=== PATIENT | male | born 1985 | race Caucasian/White ===

== ENCOUNTER 2017-07-28 10:05 | Emergency (ER) | payer SELFPAY ==
[2017-07-28] MEDS ORDERED: DUONEB 0.5 MG/3 MG ONE (10:12)
[2017-07-28] MEDS ORDERED: SOLU-Medrol 125 MG VIAL ONE (10:12)
[2017-07-28 10:27] VITALS: BP 187/93; BMI 18.4
[2017-07-28] MEDS ORDERED: SOLU-Medrol 125 MG VIAL IVP ONE (10:27)
[2017-07-28] MEDS ORDERED: DUONEB 0.5 MG/3 MG NEB ONE (10:27)
--- NOTE | 2017-07-28 10:36 | DR.URIAD ---
HPI - Time Seen Time seen: 10:30 - PCP Primary Care Physician: NATIVIDAD - HPI Comment HPI Comment: HISTORY COPD AND OUT OF INHALER. LOW GRADE FEVER. - Complaint Chief Complaint Doctors Comments: INCREASING SOB, COUGH, CONGESTION TIMES ONE DAY. Chief Complaint:: PT C/O BEING UP SINCE 0100. WITH C/O SOB, PT HAS HX OF COPD, INPIR WHEEZING NOTED .. - Reviewed Nurses Notes Reviewed: Yes - Source History Provided: Patient - Mode of Arrival Mode of Arrival: Ambulatory - Timing Onset of Chief Complaint: 07/27/17 - Context Recent Treated Infections: None History of Respiratory: Steroid Use (HISTORY COPD) - Quality Quality of Cough: Productive, Yellow Rhinorrhea: Green Shortness of Breath: Moderate - Associated Signs and Symptoms Other Signs and Symptoms: Cough, Shortness of Breath, Wheeze PMH - PMH Past Medical History: Yes Past Medical History: COPD Past Surgical History: No - Family History History of Family Medical Conditions: No - Social History Does patient currently use any type of tobacco product: No Have you used tobacco products in the last 12 months: No Type of Tobacco Use: None Does any household member use tobacco: No Alcohol Use: None Do you use any recreational Drugs:: No Lives With: Family Lives Where: Home - infectious screening In the last 2 months have you had wt loss of >10#?: NO Have you had fever, night sweats or hemotysis?: No Have you traveled outside the country in the last 6 months?: No Isolation: Standard ROS - Review of Systems Constitutional: Weakness, Fatigue. negative: Chills, Fever Eyes: negative: Eye Pain, Discharge ENTM: Nose Discharge, Nose Congestion. negative: Ear Pain, Throat Pain Respiratoy: Productive Cough, Short of Breath, Wheezing. negative: Hemoptysis Cardiovascular: No Symptoms Reported Gastrointestinal/Abdominal: No Symptoms Reported Genitourinary: No Symptoms Reported Neurological: No Symptoms Reported Musculoskeletal: No Symptoms Reported Integumentary: No Symptoms Reported Hematologic/Lymphatic: No Symptoms Reported Endocrine: No Symptoms Reported All Other Systems: Reviewed and Negative PE - Vital Signs Vitals: Temperature 96.9 F Pulse Rate [Right Brachial] 96 Pulse Rate 125 Respiratory Rate 20 Blood Pressure 187/93 O2 Sat by Pulse Oximetry 96 - General Limitations: No Limitations General Appearance: Alert - Head Head Exam: Normal Inspection - Eyes Eye exam: Normal Appearance - ENT ENT Exam: Normal External Ear Exam External Ear Exam: Normal External Inspection TM/Canal Exam: Bilateral Normal Nose Exam: Normal Nose Exam Mouth Exam: Normal Inspection Throat Exam: Normal Inspection - Neck Neck Exam: Trachea Midline - Chest Chest Inspection: Symmetric Chest Wall Rise - Respiratory Respiratory Exam: Respiratory Distress Respiratory Exam: Bilateral Wheezing, Bilateral Rhonchi, Upper Wheezing, Upper Rhonchi, Lower Wheezing, Lower Rhonchi - Cardiovascular Cardiovascular Exam: Regular Rate, Normal Rhythm, Normal Heart Sounds - Abdominal Exam Abdominal Exam: Normal Bowel Sounds - Extremeties Extremities Exam: Normal Inspection - Back Back Exam: Normal Inspection - Neurologic Neurological Exam: Alert, Oriented X3 - Psychiatric Psychiatric Exam: Normal Affect, Normal Mood - Skin Skin Exam: Normal Color MDM - Additional Information Additional Information Obtained From: Family - Differential Diagnosis Differential Diagnosis: Influenza A, Influenza B, Otitis media, Streptococcal pharyngitis, Viral pharyngitis, Pneumonia, Sinsusitis, URI Course - Treatment Treatment: SEE ORDERS. NEB RX IN ED. SOB IMPROVING. - Education/Counseling Education/Counseling: Patient, Family, Education Educated On: Treatment, Diagnosis, Needs for Follow Up ROR - Labs Reviewed Laboratory Results Reviewed?: Yes Laboratory: Influenza Type A (PCR) Negative (NEGATIVE) 07/28/17 10:42 Influenza Type B (PCR) Negative (NEGATIVE) 07/28/17 10:42 - XRAY XRAY Interpreted by: Radiologist XRAY Findings: REPORT DISCUSS WITH PATIENT. - Diagnosis Discharge Problem: Bronchitis COPD (chronic obstructive pulmonary disease) Qualifiers: COPD type: COPD with acute exacerbation Qualified Code(s): J44.1 - Chronic obstructive pulmonary disease with (acute) exacerbation - Discharge Plan Disposition: HOME, SELF-CARE Condition: Stable Prescriptions: Albuterol Sulfate [Ventolin Hfa Inhaler] 2 puff INH QID PRN #1 aer PRN Reason: Asthma Symptoms Amoxicillin [Amoxil 875 mg] 875 mg PO Q12H #20 tab Methylprednisolone Dosepak 4Mg [MEDROL DOSEPAK (4 mg tab x 21)] 1 nancy PO ONCE # 1 nancy - Follow ups/Referrals Follow ups/Referrals: [facility],None [Primary Care Provider] - 3 days - Instructions Instructions: Chronic Obstructive Pulmonary Disease Exacerbation, [id number] , Acute Bronchitis, [id number] Additional Instructions: RETURN TO ED IF WORSE.
--- NOTE | 2017-07-28 11:07 | RAD ---
Examination: Chest x-ray. Clinical History: Shortness of breath, cough. Technique: PA and lateral views of the chest were obtained. Comparison: 10/26/2013. Findings: Both costophrenic angles were omitted from the image. The cardiac and mediastinal contours are within normal limits. No pneumothorax or pleural effusion is noted. The lungs are hyperinflated, suggestive of asthma. No confluent pulmonary opacity is noted. No acute osseous abnormality is noted. Impression: 1. Hyperinflated lungs, suggestive of asthma. No confluent pulmonary opacity is noted. Reported By:
== END 2017-07-28 11:48 | disposition home or self-care (01) ==
LOC: ER 10:30
DX: J40 Bronchitis, not specified as acute or chronic (principal); J44.1 Chronic obstructive pulmonary disease with (acute) exacerbation
CPT/HCPCS: 71046; 87502; 96365; 96374; 99283; 99284; A4222; J2930; J7620